=== PATIENT | female | born 1955 | race Caucasian/White ===

== ENCOUNTER → 2018-12-22 | Day surgery (SDC) | payer OTHER ==
[~2018-12-22] MED LIST: HYDROmorphONE 1 MG/5 ML IV SYRINGE IV; METOCLOPRAMIDE 10 MG INJ; ONDANSETRON 4 MG INJ IV; PROPOFOL 20 ML
== END | disposition home or self-care (01) ==
LOC: GIL 12:44
DX: K44.9 Diaphragmatic hernia without obstruction or gangrene (principal); E78.5 Hyperlipidemia, unspecified; J45.909 Unspecified asthma, uncomplicated
CPT/HCPCS: 43239; 88305